=== PATIENT | female | born 1930 | race Caucasian/White ===

== ENCOUNTER 2018-03-27 09:10 | Inpatient (IN) | payer OTHER ==
--- NOTE | 2018-03-27 09:35 | PDOC ---
History of Present Illness - General Chief Complaint: Injury Stated Complaint: FALL Time Seen by Provider: 03/27/18 09:17 History Source: Senior Living Records - History of Present Illness Initial Comments: 03/27/18 10:02 * History obtained from EMS and paperwork from [facility]. Patient is an 87 year old female with a PMH of Asthma and Dementia who was BIBEMS after being found on the floor this morning at her [facility]. Patient is alert , but not oriented and asks why she is here -- which she identifies as [place] , but is unable to state she is at the hospital. Does not recall falling out of bed and states since she is at the hospital would like a lump in her L underarm evaluated. ROS is positive for R "groin pain" when she moves her R leg. States this pain has been going on for 2-3 weeks. NKDA Surgical: denies Social: denies Medications: ASA, Vitamin D, Ferrous Sulfate, Vitamin C, Docusate, Senna As per EMR patient has not been evaluated in our ED on prior occasion. Past History - Past Medical History Allergies/Adverse Reactions: Allergies Allergy/AdvReac Type Severity Reaction Status Date / Time No Known Allergies Allergy Verified 03/27/18 09:35 Review of Systems - Review of Systems Able to Perform ROS?: No (dementia - limited ROS) Constitutional: Yes: Fever Musculoskeletal: Yes: Other (R groin pain) *Physical Exam - Physical Exam General Appearance: Yes: Nourished, Thin HEENT: positive: EOMI, VALENTIN, Other (No mastoid ecchymosis, ) Neck: positive: Trachea midline, Supple Respiratory/Chest: positive: Lungs Clear, Normal Breath Sounds Cardiovascular: positive: S1, S2, Systolic Murmur Vascular Pulses: Femoral (R): 2+, Femoral (L): 2+, Dorsalis-Pedis (R): 2+, Doralis-Pedis (L): 2+ Gastrointestinal/Abdominal: positive: Normal Bowel Sounds, Soft Extremity: positive: Normal Capillary Refill, Normal Inspection, Other (B/L LE full ROM, No visible deformity) Integumentary: positive: Normal Color, Dry, Warm Neurologic: positive: Alert, Responsive, Disoriented ED Treatment Course - LABORATORY CBC & Chemistry Diagram: 03/27/18 10:55 03/27/18 10:55 Medical Decision Making - Medical Decision Making 03/27/18 10:02 87 year old female with a PMH of dementia found on the floor at her assisted living facility. PE significant for R groin pain when ranging RLE, NVI, pelvis stable, no deformity. DDX: CVA/TIA, r/o ACS, Pelvic fracture. Will obtain CT head, R hip/pelvis, Troponin, ECG. 03/27/18 11:08 Attending discussed case w/nursing @ [facility] - patient lives in dementia unit, ambulatory, completes ADL's with minimal assistance. 03/27/18 13:[address], XR pending 03/27/18 14:16 XR shows R femoral neck fracture Case d/w orthopedic surgery Patient's PMD, Dr. Terrazas paged for admission 03/27/18 15:[address] Terrazas. Patient counseled on POC. Amenable to admission. [facility] contacted and counseled on POC. 03/27/18 17:27 Dr. Zhou @ bedside. Notes patient will go to OR in 72 hours pending Eliquis clearance. *DC/Admit/Observation/Transfer Diagnosis at time of Disposition: Femoral neck fracture - Discharge Dispostion Disposition: HOME Condition at time of disposition: Fair Decision to Admit order: Yes - Referrals - Patient Instructions - Post Discharge Activity
[2018-03-27] MEDS ORDERED: ASPIRIN 81 MG CHEWABLE TABLETS ONE (09:38)
--- NOTE | 2018-03-27 09:54 | PDOC ---
Attending Attestation - Resident Resident Name: Leah Leonardo - ED Attending Attestation I have performed the following: I have examined & evaluated the patient, The case was reviewed & discussed with the resident, I agree w/resident's findings & plan, Exceptions are as noted - HPI HPI: 03/27/18 11:33 87y F hx of dementia presents from [facility] dementia unit sp unwitnessed fall. Per staff, pt was unable to stand onher own and was localizing pain to her R groin after trying to stand. History limited from pt due to her dementia, but denie sany other focal complaints including fever/chills, cp, abd pain, headache. on exam pt in no distress AOx1 card: rrr, no mrg abd soft nontender pulm cta b/l mild pain to pelvis with passive ROM of R hip, otherwise normal ROM of b/l hip, knees, ankles, and upper extremities a&p unwitnessed fall, possible syncope - will obtain blood work to r/o anemia, metabolic dernagement, occult infection 03/27/18 14:23 pts xray noted for impacted femoral fracture ortho consulted will admit for further mangaement - Physicial Exam PE: 03/28/18 11:20 see above - Medical Decision Making 03/27/18 10:59 discussed with in home caregiver Oracio Chairez ([phone]) Pt with history of dementia and breast ca, had an unwitnessed fall this morning - found down during morning rounds. had attempted to stand on her own but was unable to remain standing. no prior history of falls. normally walks unassisted. PMD:Dr. Terrazas Legal guardian - Yury Hobbs (Nephew) - [phone] Heart Score/ECG Review - ECG Impressions Comment:: 03/27/18 11:36 Twelve-lead EKG was performed and reviewed by me. There is normal sinus rhythm with a rate of rate of 47 nonspecific TWI No prior ekgs for comparison Impression: sinus bradycardia
[2018-03-27 11:00] LABS: BASO % 0.4 % (0-2.0); EOS % 0.3 % (0-4.5); HEMATOCRIT 39.5 % (32.4-45.2); HEMOGLOBIN 13.5 GM/dL (10.7-15.3); LYMPH % 12.8 % (8-40); MCH 31.7 pg (25.7-33.7); MCHC 34.2 g/dl (32.0-36.0); MEAN CELL VOLUME 92.8 fl (80-96); MEAN PLT VOLUME 9.1 fl (7.5-11.1); MONO % 2.5 % (3.8-10.2); PLATELET COUNT 113 K/MM3 (134-434); RBC 4.25 M/mm3 (3.60-5.2); RDW 13.4 % (11.6-15.6)
[2018-03-27 11:48] LABS: ALBUMIN 3.8 g/dl (3.4-5.0); ALK PHOS 72 U/L (45-117); ANION GAP 7 MMOL/L (8-16); BILIRUBIN,TOTAL 0.9 mg/dL (0.2-1); BLOOD UREA NITROGEN 17 mg/dL (7-18); CALCIUM 9.6 mg/dL (8.5-10.1); CHLORIDE 107 mmol/L (98-107); CO2 28 mmol/L (21-32); CREATININE 0.7 mg/dL (0.55-1.3); GLUCOSE,RANDOM 89 mg/dL (74-106); MAGNESIUM 1.9 mg/dL (1.8-2.4); POTASSIUM 4.3 mmol/L (3.5-5.1); SGOT/AST 31 U/L (15-37); SGPT/ALT 29 U/L (13-61); SODIUM 143 mmol/L (136-145); TOT PROT 6.2 g/dl (6.4-8.2)
[2018-03-27] MEDS ORDERED: ALBUTEROL SO4 8 GM HFA INHALER IH ONE (11:53)
[2018-03-27] MEDS ORDERED: OLANZapine 5 MG TABLET PO ONE (12:11)
[2018-03-27] MEDS ORDERED: MORPHINE SULFATE 2 MG/ML VIAL IVPUSH PRN (17:15)
[2018-03-27 17:26] LABS: INR 1.07 (0.83-1.09); PROTHROMBIN TIME (PATIENT) 12.1 SEC (9.7-13.0)
--- NOTE | 2018-03-27 17:27 | PN ---
Progress Note (short form) - Note Progress Note: 87 yo female seen and examined in the ER. She fell today at her assisted living facility. Cannot walk or bear weight, c/o pain in the right groin. PE RLE is grossly NVI No deformity, not mal rotated No shortening deformity + pain in groin with log rolling and axial load Limited ROM right hip and knee bc of pain Xrays Show a non displaced right femoral neck fracture Imp As above Rec Admission Medical (and cardiac?) optimization Hold all anticoagulants including ASA and Eliquis Because of the Eliquis the surgery is delayed for 3 days Patient will need surgery, right hip cannulated screws ORIF
[2018-03-27 17:29] LABS: ACTIVATED PTT 25.1 SECONDS (25.2-36.5)
--- NOTE | 2018-03-27 18:08 | EKG ---
Test Reason : Blood Pressure : / mmHG Vent. Rate : 047 BPM Atrial Rate : 047 BPM P-R Int : 130 ms QRS Dur : 086 ms QT Int : 416 ms P-R-T Axes : 080 055 090 degrees QTc Int : 368 ms SINUS BRADYCARDIA WITH MARKED SINUS ARRHYTHMIA POSSIBLE LEFT ATRIAL ENLARGEMENT NONSPECIFIC ST AND T WAVE ABNORMALITY ABNORMAL ECG NO PREVIOUS ECGS AVAILABLE Confirmed by VASQUEZ RAZO MD ([id number]) on 03/27/2018 6:08:15 PM Referred By: Confirmed By:VASQUEZ RAZO MD
[2018-03-27 18:50] LABS: URINE APPEARANCE CLEAR; URINE BILIRUBIN NEGATIVE (<2.0 mg/dL); URINE COLOR YELLOW; URINE GLUCOSE (UA) NEGATIVE (NEGATIVE); URINE KETONE NEGATIVE (NEGATIVE); URINE LEUK ESTERASE NEGATIVE (NEGATIVE); URINE NITRITE NEGATIVE (NEGATIVE); URINE PROTEIN NEGATIVE (NEGATIVE); URINE UROBILINOGEN NEGATIVE mg/dL (0.2-1.0)
--- NOTE | 2018-03-27 22:56 | HP ---
Admitting History and Physical - Admission History of Present Illness: Patient is an 87 year old female with a PMH of Asthma and Dementia who was BIBEMS after being found on the floor this morning at her [facility]. Patient is alert , but not oriented and asks why she is here -- which she identifies as [place] , but is unable to state she is at the hospital. Does not recall falling out of bed and states since she is at the hospital would like a lump in her L underarm evaluated. ROS is positive for R "groin pain" when she moves her R leg. States this pain has been going on for 2-3 weeks. History is obtained from [facility] transfer paperwork, and discussion with nurse over the phone.-- Fall was unwitnessed. 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 - Smoking History Smoking history: Never smoked Have you smoked in the past 12 months: No - Alcohol/Substance Use Hx Alcohol Use: No - Social History Usual Living Arrangement: Yes: Assisted Living ADL: Support Services History of Recent Travel: No Home Medications - Allergies Allergies/Adverse Reactions: Allergies Allergy/AdvReac Type Severity Reaction Status Date / Time No Known Allergies Allergy Verified 03/27/18 09:35 Review of Systems Unable to obtain ROS, reason: dementia Physical Examination Vital Signs: Vital Signs Temperature 97.8 F 03/27/18 21:55 Pulse Rate 80 03/27/18 21:55 Respiratory Rate 20 03/27/18 21:55 Blood Pressure 120/76 03/27/18 21:55 O2 Sat by Pulse Oximetry (%) 94 L 03/27/18 14:00 Constitutional: Yes: Calm, Thin, Other (confused) Eyes: Yes: WNL, Conjunctiva Clear HENT: Yes: Atraumatic, Normocephalic Neck: Yes: Supple, Trachea Midline Cardiovascular: Yes: Regular Rate and Rhythm Respiratory: Yes: Regular Gastrointestinal: Yes: Normal Bowel Sounds, Soft. No: Distention, Tenderness Renal/: Yes: WNL Breast(s): Yes: WNL Musculoskeletal: Yes: Other (right groin pain / pain with log rolling /) Extremities: Yes: Deformity, Shortened (right lower extremity) Edema: No Peripheral Pulses WNL: Yes Integumentary: Yes: WNL Neurological: Yes: Pre-Existing Deficit Labs: CBC, BMP 03/27/18 10:55 03/27/18 10:55 Problem List - Problems (1) Fracture of femoral neck, right Code(s): S72.001A - FRACTURE OF UNSP PART OF NECK OF RIGHT FEMUR, INIT (2) Dementia Code(s): F03.90 - UNSPECIFIED DEMENTIA WITHOUT BEHAVIORAL DISTURBANCE (3) Femoral neck fracture Code(s): S72.009A - FRACTURE OF UNSP PART OF NECK OF UNSP FEMUR, INIT
--- NOTE | 2018-03-28 09:21 | PN ---
Progress Note (short form) - Note Progress Note: Ortho Pt seen and examined with right femoral neck fx- nondisplaced Selected Entries 03/28/18 06:00 Temperature 97.4 F L Pulse Rate 84 Respiratory 20 Rate Blood Pressure 150/68 Laboratory Tests 03/27/18 10:55 WBC 11.0 H Hgb 13.5 Hct 39.5 Plt Count 113 L RLE- + ttp , limited rom secondary to pain nvi a/p OR for cannulated screws once medically optimized Tentatively for /Tuesday Surgical clearance Hold AC d/w Dr. Zhou
--- NOTE | 2018-03-28 09:32 | CON.CARD ---
Consult Consult Specialty:: Cardiology Referred by:: Mk Reason for Consultation:: Preop - History of Present Illness Chief Complaint: hip fracture History of Present Illness: 87F h/o asthma, dementia p/w fall, found on the floor. Cannot provide history due to dementia, lives at assisted living. Does not remember the fall. Xray shows fracture of hip, ortho evaluated with plan for surgery. EKG shows sinus bradycardia with sinus arrhythmia, nonspecific ST abnormality. She denies any complaints this morning. - Past Medical History PROCESS OWNER: Yes: Dementia - Alcohol/Substance Use Hx Alcohol Use: No - Smoking History Smoking history: Never smoked Have you smoked in the past 12 months: No - Social History ADL: Support Services History of Recent Travel: No Home Medications - Allergies Allergies/Adverse Reactions: Allergies Allergy/AdvReac Type Severity Reaction Status Date / Time No Known Allergies Allergy Verified 03/27/18 09:35 - Home Medications Home Medications: Ambulatory Orders ASA - PO DAILY 03/28/18 Docusate Sodium 2 cap PO HS 03/28/18 Ferrous Sulfate 1 tab PO DAILY 03/28/18 Senna 1 tab PO HS 03/28/18 Ventolin Hfa Inhaler -200 2 puff QID 03/28/18 Vitamin C 1 tab PO DAILY 03/28/18 Vitamin D2 units PO MONTHLY 03/28/18 Vitamin D3 1 tablet PO DAILY 03/28/18 Family Disease History - Family Disease History Family History: Unable to Obtain Review of Systems Unable to obtain ROS, reason: dementia Vital Signs: Vital Signs Temperature 97.4 F L 03/28/18 06:00 Pulse Rate 84 03/28/18 06:00 Respiratory Rate 20 03/28/18 06:00 Blood Pressure 150/68 03/28/18 06:00 O2 Sat by Pulse Oximetry (%) 94 L 03/27/18 14:00 Constitutional: Yes: No Distress, Calm Eyes: Yes: Conjunctiva Clear, EOM Intact HENT: Yes: Atraumatic, Normocephalic Neck: Yes: Supple, Trachea Midline Respiratory: Yes: Regular, CTA Bilaterally (poor effort, auscultated anteriorly) Gastrointestinal: Yes: Normal Bowel Sounds, Soft Cardiovascular: Yes: Regular Rate and Rhythm JVD: No Carotid Bruit: No Heart Sounds: Yes: S1, S2 Murmur: Yes: Systolic Murmur, Grade 3 (RUSB, crescendo-decrescendjo) Musculoskeletal: Yes: Joint Swelling Extremities: Yes: External Rotation Edema: No Peripheral Pulses WNL: Yes Peripheral Pulses: 2+ Left Doralis Pedis, 2+ Right Dorsalis Pedis Integumentary: Yes: WNL Neurological: Yes: Alert, Oriented Psychiatric: Yes: Alert, Oriented - Other Data Labs, Other Data: CBC, BMP 03/27/18 10:55 03/27/18 10:55 INR, PTT INR 1.07 (0.83-1.09) 03/27/18 16:50 Troponin, BNP 03/27/18 10:55 Troponin I 0.02 Troponin, BNP 03/27/18 10:55 Troponin I 0.02 Assessment/Plan EKG: sinus bradycardia with sinus arrhythmia, nonspecific ST abnormality 87F h/o asthma, dementia p/w hip fracture preoperative evaluation - pt unable to give history - murmur on exam, consistent with , echo pending for evaluation - preop clearance pending echo - otherwise patient appears stable from cardiac perspective asthma - denies dyspnea - manage per primary dementia - manage per primary
--- NOTE | 2018-03-28 10:45 | PN ---
Progress Note (short form) - Note Progress Note: patient seen andexamined unable to provide any hx denies pain / but can illicit pain on log rolling or examination of right hip Vital Signs Period Temp Pulse Resp BP Sys/Hood Pulse Ox Last 24 Hr 97.4 F-97.8 F 60-84 18-20 120-150/52-76 94 neck supple heart S1/S2 SM 3/6 left breast with multiple hard irregular masses ( HCP aware) lung clear bilat abd soft non tender ext no edema / +2 pulses equally no calf tenderness CBC, BMP 03/27/18 10:55 03/27/18 10:55 Active Medications Ascorbic Acid (Vitamin C -) 500 mg PO DAILY [facility] Cholecalciferol (Vitamin D3 -) 1,000 unit PO DAILY [facility] Docusate Sodium (Colace -) 200 mg PO HS [facility] Ferrous Sulfate (Feosol -) 325 mg PO DAILY [facility] Morphine Sulfate (Morphine Sulfate) 2 mg IVPUSH Q4H PRN PRN Reason: PAIN LEVEL 6-10 Senna (Senna -) 1 tab PO HS [facility] assmt Dementia Acute right femoral neck Fx Loud HM - ? -- echo ordered Breast Mass - no intervention per HCP Asthma Ortho eval off ASA Cardio evaluation for clearance pain management nebulizer tx Problem List - Problems (1) Fracture of femoral neck, right Code(s): S72.001A - FRACTURE OF UNSP PART OF NECK OF RIGHT FEMUR, INIT (2) Dementia Code(s): F03.90 - UNSPECIFIED DEMENTIA WITHOUT BEHAVIORAL DISTURBANCE (3) Femoral neck fracture Code(s): S72.009A - FRACTURE OF UNSP PART OF NECK OF UNSP FEMUR, INIT
[2018-03-28] MEDS: ALBUTEROL SO4 2.5/IPRATROPIUM 0.5 INH SOL 3 ML VIAL.NEB. NEB SCH ×3 (11:55→19:50)
[2018-03-28] MEDS: ASCORBIC ACID 500 MG TABLET (FP) PO SCH (14:18)
[2018-03-28] MEDS: FERROUS SO4 325 MG TABLET (FP) PO SCH (14:18)
[2018-03-28] MEDS: CHOLECALCIFEROL (VITAMIN D3) 1,000 UNIT TABLET (FP) PO SCH (14:19)
[2018-03-28] MEDS ORDERED: SENNOSIDES 8.6MG TABLET (FP) PO SCH (22:00)
[2018-03-28] MEDS ORDERED: DOCUSATE SODIUM 100 MG CAPSULE (FP) PO SCH (22:00)
[2018-03-29] MEDS: ALBUTEROL SO4 2.5/IPRATROPIUM 0.5 INH SOL 3 ML VIAL.NEB. NEB SCH ×4 (07:43→21:05)
[2018-03-29 07:56] LABS: BASO % 0.8 % (0-2.0); EOS % 3.9 % (0-4.5); HEMATOCRIT 31.2 % (32.4-45.2); HEMOGLOBIN 10.5 GM/dL (10.7-15.3); LYMPH % 14.3 % (8-40); MCH 31.1 pg (25.7-33.7); MCHC 33.7 g/dl (32.0-36.0); MEAN CELL VOLUME 92.4 fl (80-96); MEAN PLT VOLUME 9.2 fl (7.5-11.1); MONO % 6.9 % (3.8-10.2); NEUT % 74.1 % (42.8-82.8); PLATELET COUNT 93 K/MM3 (134-434); RBC 3.38 M/mm3 (3.60-5.2); RDW 13.7 % (11.6-15.6); WHITE BLOOD COUNT 9.4 K/mm3 (4.0-10.0)
[2018-03-29 08:28] LABS: ANION GAP 9 MMOL/L (8-16); BLOOD UREA NITROGEN 21 mg/dL (7-18); CHLORIDE 108 mmol/L (98-107); CO2 27 mmol/L (21-32); CREATININE 0.7 mg/dL (0.55-1.3); GLUCOSE,RANDOM 103 mg/dL (74-106); POTASSIUM 4.2 mmol/L (3.5-5.1); SODIUM 143 mmol/L (136-145)
[2018-03-29] MEDS: FERROUS SO4 325 MG TABLET (FP) PO SCH (10:57)
[2018-03-29] MEDS: CHOLECALCIFEROL (VITAMIN D3) 1,000 UNIT TABLET (FP) PO SCH (10:57)
[2018-03-29] MEDS: ASCORBIC ACID 500 MG TABLET (FP) PO SCH (10:57)
--- NOTE | 2018-03-29 12:24 | PN ---
Progress Note (short form) - Note Progress Note: s: no complaints today. no cp, palps, dizzy, sob Current Medications Albuterol/Ipratropium (Duoneb -) 1 amp NEB RQID [facility] Last Admin: 03/29/18 11:58 Dose: Not Given Ascorbic Acid (Vitamin C -) 500 mg PO DAILY [facility] Last Admin: 03/29/18 10:57 Dose: Not Given Cholecalciferol (Vitamin D3 -) 1,000 unit PO DAILY [facility] Last Admin: 03/29/18 10:57 Dose: Not Given Docusate Sodium (Colace -) 200 mg PO [facility] Last Admin: 03/28/18 23:03 Dose: Not Given Ferrous Sulfate (Feosol -) 325 mg PO DAILY [facility] Last Admin: 03/29/18 10:57 Dose: Not Given Morphine Sulfate (Morphine Sulfate) 2 mg IVPUSH Q4H PRN PRN Reason: PAIN LEVEL 6-10 Last Admin: 03/28/18 22:58 Dose: 2 mg Senna (Senna -) 1 tab PO [facility] Last Admin: 03/28/18 23:03 Dose: Not Given Vital Signs: Vital Signs Period Temp Pulse Resp BP Sys/Hood Pulse Ox Last 24 Hr 97.8 F-98.8 F 75-88 18-20 109-152/60-77 Constitutional: Yes: No Distress, Calm Eyes: Yes: Conjunctiva Clear, EOM Intact HENT: Yes: Atraumatic, Normocephalic Neck: Yes: Supple, Trachea Midline Respiratory: Yes: Regular, CTA Bilaterally (poor effort, auscultated anteriorly) Gastrointestinal: Yes: Normal Bowel Sounds, Soft Cardiovascular: Yes: Regular Rate and Rhythm JVD: No Carotid Bruit: No Heart Sounds: Yes: S1, S2 Murmur: Yes: Systolic Murmur, Grade 3 (RUSB, crescendo-decrescendo) Musculoskeletal: Yes: Joint Swelling Extremities: Yes: External Rotation Edema: No Peripheral Pulses WNL: Yes Peripheral Pulses: 2+ Left Doralis Pedis, 2+ Right Dorsalis Pedis Integumentary: Yes: WNL Neurological: Yes: Alert, Oriented Psychiatric: Yes: Alert, Oriented Assessment/Plan EKG: sinus bradycardia with sinus arrhythmia, nonspecific ST abnormality 87F h/o asthma, dementia p/w hip fracture preoperative evaluation - clinically appears euvolemic. no history of chest pain, dyspnea, edema - echo preliminary shows severe , full read is pending - patient is asymptomatic with no signs of HF - may proceed with urgent hip surgery as planned, no further cardiac testing prior to surgery. Cautious use of IV fluids and close monitoring of volume status given aortic stenosis aortic stenosis - likely severe, full echo report pending - appears euvolemic, asymptomatic asthma - denies dyspnea - manage per primary dementia - manage per primary
--- NOTE | 2018-03-29 13:03 | ECHO ---
Name: KYLE UPTON Exam:Adult Echocardiogram Study Date: 03/29/2018 11:34 AM Age: 87 yrs Reason For Study: mmurmur,pre-op Height: 65 in Weight: 112 lb BSA: 1.5 m2 MMode/2D Measurements & Calculations IVSd: 0.90 cm Ao root diam: 2.8 cm LVIDd: 3.1 cm LA dimension: 2.3 cm LVIDs: 1.8 cm ACS: 0.49 cm LVPWd: 1.1 cm IVSs: 1.3 cm LVPWs: 1.4 cm EDV(Teich): 38.4 ml ESV(Teich): 9.6 ml Doppler Measurements & Calculations MV E max ernst: 74.8 cm/sec Ao V2 max: 591.3 cm/sec MV A max ernst: 108.3 cm/sec Ao max P.0 mmHg MV E/A: 0.69 Ao V2 mean: 434.1 cm/sec Ao mean P.8 mmHg Ao V2 VTI: 112.2 cm TR max ernst: 327.5 cm/sec Med Peak E' Ernst: 3.5 cm/sec TR max P.1 mmHg Med E/e': 21.3 Lat Peak E' Ernst: 6.3 cm/sec Lat E/e': 12.0 Procedure A two-dimensional transthoracic echocardiogram with color flow and Doppler was performed. Left Ventricle There is moderate concentric left ventricular hypertrophy. The left ventricular ejection fraction is normal. E/A reversal consistent with but not diagnostic of poor LV compliance. The left ventricular wall travis on is normal. Right Ventricle The right ventricle is normal in size and function. Atria Normal left and right atrial size and function. Mitral Valve There is mild mitral valve thickening. There is no mitral valve stenosis. There is trace to mild mitr al regurgitation. Tricuspid Valve There is moderate tricuspid valve thickening. There is no tricuspid stenosis. There is moderate tricu spid regurgitation. Right ventricular systolic pressure is elevated at 50-60mmHg. Aortic Valve There is severe aortic valve thickening. The aortic valve is not well visualized. There is severe aor tic sclerosis.;. Severe valvular aortic stenosis. -critical with the mean gradient 88 mmHg. ALESIA not calculated. No aortic regurgitation is present. Pulmonic Valve The pulmonic valve is not well visualized. There is no pulmonic valvular stenosis. There is no pulmon ic valvular regurgitation. Great Vessels The aortic root is normal size. Pericardium/Pleura There is no pericardial effusion. Interpretation Summary There is moderate concentric left ventricular hypertrophy. The left ventricular ejection fraction is normal. The aortic valve is not well visualized. There is moderate tricuspid regurgitation. Right ventricular systolic pressure is elevated at 50-60mmHg. E/A reversal consistent with but not diagnostic of poor LV compliance The left ventricular wall motion is normal. Severe valvular aortic stenosis. No aortic regurgitation is present. There is trace to mild mitral regurgitation. -critical with the mean gradient 88 mmHg. ALESIA not calculated. There is severe aortic valve thickening. There is severe aortic sclerosis.; MD Oliver Amaya 03/29/2018 01:03 PM
[2018-03-29] MEDS ORDERED: LIDOCAINE HCL/PF 2% SDV 5ML VIAL ONE (15:23)
[2018-03-29] MEDS ORDERED: SUCCINYLCHOLINE CHLORIDE 200 MG/10 ML VIAL ONE (15:25)
[2018-03-29] MEDS ORDERED: ONDANSETRON 4 MG/2 ML VIAL IVPUSH PRN ×2 (15:37→18:22)
[2018-03-29] MEDS ORDERED: LACTATED RINGERS SOLUTION 1,000 ML IV SCH (15:45)
[2018-03-29] MEDS ORDERED: DEXAMETHASONE SOD PHOSPHATE 4 MG/1 ML VIAL ONE (15:58)
[2018-03-29] MEDS ORDERED: SODIUM CHLORIDE 0.9% P/F 10 ML VIAL IJ ONE (15:58)
[2018-03-29] MEDS ORDERED: ceFAZolin SODIUM 1 GM VIAL ONE (15:58)
[2018-03-29] MEDS ORDERED: MIDAZOLAM HCL 2 MG/2 ML SINGLE DOSE VIAL ONE (16:03)
[2018-03-29] MEDS ORDERED: ceFAZolin SODIUM 1 GM VIAL IVPB ONE (16:30)
[2018-03-29] MEDS ORDERED: ePHEDrine SULFATE 50 MG/1 ML AMPULE ONE (16:49)
--- NOTE | 2018-03-29 17:38 | OP ---
Operative Note - Note: Operative Date: 03/29/18 Pre-Operative Diagnosis: right femoral neck fracture Operation: right hip cannulated screws Implants: Denys Asnin-III cannulated hip screws x 3, 80mm, 85mm, and 85mm in length Surgeon: Bill Zhou Anesthesiologist/CRIME SCENE EVIDENCE TECHNICIAN: Ruy Mendez Anesthesia: General, Spinal Estimated Blood Loss (mls): 100 Drains, Volume Out (mls): 0 Blood Volume Replaced (mls): 0 Fluid Volume Replaced (mls): 500 Operative Report Dictated: Yes
[2018-03-29] MEDS: LACTATED RINGERS SOLUTION 1,000 ML IV SCH (19:30)
--- NOTE | 2018-03-29 21:54 | PN ---
Progress Note (short form) - Note Progress Note: patient seen and examined dementia denies pain / but can illicit pain on log rolling or examination of right hip Vital Signs Period Temp Pulse Resp BP Sys/Hood Pulse Ox Last 24 Hr 97.7 F-98.3 F 75-102 18-23 90-127/41-70 91-100 neck supple heart S1/S2 SM 3/6 left breast with multiple hard irregular masses ( HCP aware) lung clear bilat abd soft non tender ext no edema / +2 pulses equally no calf tenderness CBC, BMP 03/29/18 07:28 03/29/18 07:28 INR, PTT INR 1.07 (0.83-1.09) 03/27/18 16:50 CBC, BMP 03/27/18 10:55 03/27/18 10:55 Active Medications Albuterol/Ipratropium (Duoneb -) 1 amp NEB RQID [facility] Last Admin: 03/29/18 21:05 Dose: 1 amp Ascorbic Acid (Vitamin C -) 500 mg PO DAILY [facility] Cholecalciferol (Vitamin D3 -) 1,000 unit PO DAILY [facility] Docusate Sodium (Colace -) 200 mg PO HS [facility] Fentanyl (Sublimaze Injection -) 25 mcg IVPUSH [id number] PRN PRN Reason: PAIN-PACU ORDER X 4 DOSES ONLY Ferrous Sulfate (Feosol -) 325 mg PO DAILY [facility] Lactated Ringer's (Lactated Ringers Solution) 1,000 mls @ 75 mls/hr IV ASDIR [facility] Last Admin: 03/29/18 19:30 Dose: 0 mls Morphine Sulfate (Morphine Sulfate) 2 mg IVPUSH Q4H PRN PRN Reason: PAIN LEVEL 6-10 Ondansetron HCl (Zofran Injection) 4 mg IVPUSH Q6H PRN PRN Reason: NAUSEA AND/OR VOMITING Senna (Senna -) 1 tab PO HS [facility] assmt Dementia Acute right femoral neck Fx Loud HM - ? -- echo ordered Breast Mass - no intervention per HCP Asthma plan discssed with ortho -- possible OR today off ASA Cardio evaluation for clearance -- pending echo -- ?? today pain management nebulizer tx Problem List - Problems (1) Fracture of femoral neck, right Code(s): S72.001A - FRACTURE OF UNSP PART OF NECK OF RIGHT FEMUR, INIT (2) Dementia Code(s): F03.90 - UNSPECIFIED DEMENTIA WITHOUT BEHAVIORAL DISTURBANCE (3) Femoral neck fracture Code(s): S72.009A - FRACTURE OF UNSP PART OF NECK OF UNSP FEMUR, INIT
[2018-03-29] MEDS: DOCUSATE SODIUM 100 MG CAPSULE (FP) PO SCH (22:39)
[2018-03-29] MEDS: SENNOSIDES 8.6MG TABLET (FP) PO SCH (22:39)
--- NOTE | 2018-03-30 06:52 | OP ---
DATE OF OPERATION: 03/29/2018 PREOPERATIVE DIAGNOSIS: Right femoral neck fracture. POSTOPERATIVE DIAGNOSIS: Right femoral neck fracture. PROCEDURE: Right hip cannulated screws/open reduction internal fixation. SURGEON: Ulysses Jurado MD ASSISTANTS: None. JAVA SECURITY ARCHITECT: Ruy Mendez CRNA ANESTHESIA: Spinal with LMA anesthesia. DRAINS: None. COMPLICATIONS: None. SPECIMEN: None. BLOOD LOSS: 100 mL. BLOOD GIVEN: None. FLUID REPLACEMENT: PlasmaLyte, 500 mL. INDICATIONS: This patient is an 87-year-old female with a preoperative diagnosis of a right femoral neck fracture. After understanding the potential risks, complications, alternatives, benefits to surgery versus nonsurgical treatment, she and her family including her nephew, her health care proxy, elected to undergo this procedure . There are certain risks including AVN of the femoral head and need for additional surgery. DESCRIPTION OF PROCEDURE: The patient was brought to the operating room, peripheral IV placed, IV sedation given, spinal anesthesia was induced, general anesthesia was induced. The patient was placed onto the fracture table. Ample padding noted throughout including the perineal posts. X-rays were taken of the AP and lateral planes documenting excellent position of the femoral neck and head. The right lower extremity was prepped and draped in sterile fashion. Lateral incision was made with a No. 10 scalpel blade. Subcutaneous hemostasis was achieved with the Bovie cautery. Dissection was done down through the lateral fascia using the triangular guide and putting 3 partially threaded guidewires all in the center-center portion of the femoral neck slightly posterior, slightly inferior. X-rays were taken in multiple planes including the AP and lateral documenting excellent position of these 3 screws. Then, the lateral cortex was overdrilled and 3 Asnis III Denys cannulated 6.5-mm screws were placed over the guidewires of 85, 85, and 80 mm in length. X-rays were taken throughout. Overall, it came together quite nicely. I was quite happy with the fixation. Area was irrigated and washed out. Closure was done with 0 running stitch in the deep fascia, 2-0 Vicryl was used to close the deep dermal layer, and final skin reapproximation was done with ronnie. The area was then washed and dried and covered with Aquacel, and she was taken out of the fracture table position. Total surgical time was about 35 minutes. There were no complications during the case. The patient tolerated the procedure quite well, was extubated, and brought to the regular recovery room in stable condition. Total blood loss was 100 mL. There were no complications. ULYSSES JURADO M.D. [id number]
[2018-03-30] MEDS: ALBUTEROL SO4 2.5/IPRATROPIUM 0.5 INH SOL 3 ML VIAL.NEB. NEB SCH ×4 (07:33→19:50)
[2018-03-30 07:58] LABS: BASO % 0.2 % (0-2.0); EOS % 0.1 % (0-4.5); HEMATOCRIT 25.6 % (32.4-45.2); HEMOGLOBIN 8.7 GM/dL (10.7-15.3); LYMPH % 11.2 % (8-40); MCH 31.3 pg (25.7-33.7); MEAN CELL VOLUME 92.1 fl (80-96); MEAN PLT VOLUME 9.8 fl (7.5-11.1); MONO % 5.7 % (3.8-10.2); NEUT % 82.8 % (42.8-82.8); PLATELET COUNT 96 K/MM3 (134-434); RBC 2.78 M/mm3 (3.60-5.2); RDW 13.3 % (11.6-15.6); WHITE BLOOD COUNT 9.6 K/mm3 (4.0-10.0)
[2018-03-30 08:17] LABS: ANION GAP 14 MMOL/L (8-16); BLOOD UREA NITROGEN 40 mg/dL (7-18); CALCIUM 8.7 mg/dL (8.5-10.1); CHLORIDE 107 mmol/L (98-107); CO2 24 mmol/L (21-32); CREATININE 1.5 mg/dL (0.55-1.3); GLUCOSE,RANDOM 147 mg/dL (74-106); POTASSIUM 4.4 mmol/L (3.5-5.1); SODIUM 144 mmol/L (136-145)
--- NOTE | 2018-03-30 09:25 | PN ---
Progress Note (short form) - Note Progress Note: Pt seen and examined on POD #1 s/p right hip screws. Comfortable, no real c/o pain, awake and alert and answering questions appropriately AVSS although BP trending lower and HR trending higher H/H dropped to 8.7/25.6 B/L LE are NVI with good ROM throughout Imp: Doing well on POD #1 Rec: P.T., light PWB RLE DC planning, SNF I recommend transfusing 1 unit PRBC
[2018-03-30] MEDS: LACTATED RINGERS SOLUTION 1,000 ML IV SCH (10:09)
[2018-03-30] MEDS: ASCORBIC ACID 500 MG TABLET (FP) PO SCH (10:11)
[2018-03-30] MEDS: FERROUS SO4 325 MG TABLET (FP) PO SCH (10:11)
[2018-03-30] MEDS: CHOLECALCIFEROL (VITAMIN D3) 1,000 UNIT TABLET (FP) PO SCH (10:11)
--- NOTE | 2018-03-30 11:01 | PN ---
Progress Note (short form) - Note Progress Note: patient seen and examined unable to provide any hx POD #1 right hip screws required sinclair for urinary obstruction Vital Signs Period Temp Pulse Resp BP Sys/Hood Pulse Ox Last 24 Hr 97.4 F-97.8 F 60-84 18-20 120-150/52-76 94 neck supple heart S1/S2 SM 3/6 left breast with multiple hard irregular masses ( HCP aware) lung clear bilat abd soft non tender ext no edema / +2 pulses equally no calf tenderness / good cap refill CBC, BMP 03/30/18 06:18 03/30/18 06:18 CBC, BMP 03/27/18 10:55 03/27/18 10:55 Active Medications Albuterol/Ipratropium (Duoneb -) 1 amp NEB RQID [facility] Last Admin: 03/30/18 07:33 Dose: 1 amp Ascorbic Acid (Vitamin C -) 500 mg PO DAILY [facility] Last Admin: 03/30/18 10:11 Dose: 500 mg Cholecalciferol (Vitamin D3 -) 1,000 unit PO DAILY [facility] Last Admin: 03/30/18 10:11 Dose: 1,000 unit Docusate Sodium (Colace -) 200 mg PO [facility] Last Admin: 03/29/18 22:39 Dose: 200 mg Fentanyl (Sublimaze Injection -) 25 mcg IVPUSH [id number] PRN PRN Reason: PAIN-PACU ORDER X 4 DOSES ONLY Ferrous Sulfate (Feosol -) 325 mg PO DAILY [facility] Last Admin: 03/30/18 10:11 Dose: 325 mg Lactated Ringer's (Lactated Ringers Solution) 1,000 mls @ 75 mls/hr IV ASDIR [facility] Last Admin: 03/30/18 10:09 Dose: 75 mls/hr Morphine Sulfate (Morphine Sulfate) 2 mg IVPUSH Q4H PRN PRN Reason: PAIN LEVEL 6-10 Ondansetron HCl (Zofran Injection) 4 mg IVPUSH Q6H PRN PRN Reason: NAUSEA AND/OR VOMITING Senna (Senna -) 1 tab PO HS [facility] Last Admin: 03/29/18 22:39 Dose: 1 tab assmt POD #1 right hip scews urinary obstruction Dementia Acute right femoral neck Fx Breast Mass - no intervention per HCP Asthma Plan transfuse 1 pRBC off ASA fluid management pain management nebulizer tx activity per Ortho Problem List - Problems (1) Fracture of femoral neck, right Code(s): S72.001A - FRACTURE OF UNSP PART OF NECK OF RIGHT FEMUR, INIT (2) Dementia Code(s): F03.90 - UNSPECIFIED DEMENTIA WITHOUT BEHAVIORAL DISTURBANCE (3) Femoral neck fracture Code(s): S72.009A - FRACTURE OF UNSP PART OF NECK OF UNSP FEMUR, INIT
--- NOTE | 2018-03-30 14:44 | PN ---
Progress Note (short form) - Note Progress Note: s: no complaints today Current Medications Albuterol/Ipratropium (Duoneb -) 1 amp NEB RQID [facility] Last Admin: 03/30/18 11:49 Dose: Not Given Ascorbic Acid (Vitamin C -) 500 mg PO DAILY [facility] Last Admin: 03/30/18 10:11 Dose: 500 mg Cholecalciferol (Vitamin D3 -) 1,000 unit PO DAILY [facility] Last Admin: 03/30/18 10:11 Dose: 1,000 unit Docusate Sodium (Colace -) 200 mg PO [facility] Last Admin: 03/29/18 22:39 Dose: 200 mg Fentanyl (Sublimaze Injection -) 25 mcg IVPUSH [id number] PRN PRN Reason: PAIN-PACU ORDER X 4 DOSES ONLY Ferrous Sulfate (Feosol -) 325 mg PO DAILY [facility] Last Admin: 03/30/18 10:11 Dose: 325 mg Lactated Ringer's (Lactated Ringers Solution) 1,000 mls @ 75 mls/hr IV ASDIR [facility] Last Admin: 03/30/18 10:09 Dose: 75 mls/hr Morphine Sulfate (Morphine Sulfate) 2 mg IVPUSH Q4H PRN PRN Reason: PAIN LEVEL 6-10 Ondansetron HCl (Zofran Injection) 4 mg IVPUSH Q6H PRN PRN Reason: NAUSEA AND/OR VOMITING Senna (Senna -) 1 tab PO [facility] Last Admin: 03/29/18 22:39 Dose: 1 tab Vital Signs: Vital Signs Period Temp Pulse Resp BP Sys/Hood Pulse Ox Last 24 Hr 97.5 F-98.4 F 80-102 18-23 90-127/41-68 96-100 Constitutional: Yes: No Distress, Calm Eyes: Yes: Conjunctiva Clear, EOM Intact HENT: Yes: Atraumatic, Normocephalic Neck: Yes: Supple, Trachea Midline Respiratory: Yes: Regular, CTA Bilaterally (poor effort, auscultated anteriorly) Gastrointestinal: Yes: Normal Bowel Sounds, Soft Cardiovascular: Yes: Regular Rate and Rhythm JVD: No Carotid Bruit: No Heart Sounds: Yes: S1, S2 Murmur: Yes: Systolic Murmur, Grade 3 (RUSB, crescendo-decrescendo) Musculoskeletal: Yes: Joint Swelling Extremities: Yes: External Rotation Edema: No Peripheral Pulses WNL: Yes Peripheral Pulses: 2+ Left Doralis Pedis, 2+ Right Dorsalis Pedis Integumentary: Yes: WNL Neurological: Yes: Alert, Oriented Psychiatric: Yes: Alert, Oriented Assessment/Plan EKG: sinus bradycardia with sinus arrhythmia, nonspecific ST abnormality echo 03/2018 mod conc LVH, nl EF, AV severely calcified, RVSP 50-60 mmHg, severe , mean gradient 88 mmHg, PG 140 mmHg, tr to mild MR 87F h/o asthma, dementia p/w hip fracture hip fx s/p repair - post op hip repair - in setting of critical would closely monitor volume status and use IV fluids cautiously aortic stenosis - critical aortic stenosis - patient is asymptomatic currently, has dementia difficult to obtain history, no signs of HF - spoke with patient's nephew Yury, known diagnosis of , per patient deferring further workup at this point due to dementia asthma - denies dyspnea - manage per primary dementia - manage per primary
[2018-03-30] MEDS: SENNOSIDES 8.6MG TABLET (FP) PO SCH (21:01)
[2018-03-30] MEDS: DOCUSATE SODIUM 100 MG CAPSULE (FP) PO SCH (21:01)
[2018-03-30] MEDS: MORPHINE SULFATE 2 MG/ML VIAL IVPUSH PRN (22:48)
[2018-03-31] MEDS: MORPHINE SULFATE 2 MG/ML VIAL IVPUSH PRN (06:44)
[2018-03-31] MEDS: ALBUTEROL SO4 2.5/IPRATROPIUM 0.5 INH SOL 3 ML VIAL.NEB. NEB SCH ×4 (07:37→20:30)
[2018-03-31 08:10] LABS: BASO % 0.5 % (0-2.0); EOS % 0.7 % (0-4.5); HEMATOCRIT 28.1 % (32.4-45.2); HEMOGLOBIN 9.5 GM/dL (10.7-15.3); LYMPH % 13.7 % (8-40); MCH 29.6 pg (25.7-33.7); MCHC 33.8 g/dl (32.0-36.0); MEAN CELL VOLUME 87.7 fl (80-96); MEAN PLT VOLUME 9.7 fl (7.5-11.1); NEUT % 77.1 % (42.8-82.8); PLATELET COUNT 103 K/MM3 (134-434); RDW 16.6 % (11.6-15.6); WHITE BLOOD COUNT 15.7 K/mm3 (4.0-10.0)
[2018-03-31 09:04] LABS: ANION GAP 7 MMOL/L (8-16); BLOOD UREA NITROGEN 58 mg/dL (7-18); CHLORIDE 105 mmol/L (98-107); CO2 28 mmol/L (21-32); CREATININE 1.3 mg/dL (0.55-1.3); GLUCOSE,RANDOM 101 mg/dL (74-106); POTASSIUM 4.2 mmol/L (3.5-5.1); SODIUM 140 mmol/L (136-145)
[2018-03-31] MEDS ORDERED: PT OWN MED DRAWER 7, Y5N ONE (09:55)
[2018-03-31] MEDS: ASCORBIC ACID 500 MG TABLET (FP) PO SCH (09:58)
[2018-03-31] MEDS: FERROUS SO4 325 MG TABLET (FP) PO SCH (09:58)
[2018-03-31] MEDS: CHOLECALCIFEROL (VITAMIN D3) 1,000 UNIT TABLET (FP) PO SCH (09:58)
--- NOTE | 2018-03-31 10:09 | PN ---
Progress Note (short form) - Note Progress Note: 87 y/o female with Dementia, Breast/Axillary nodules and Asthma. S/p rt hip pinning due to fall. Denies pain. Appears comfortable but confused. Vital Signs Period Temp Pulse Resp BP Sys/Hood Pulse Ox Last 24 Hr 98.3 F-98.6 F 70-84 18-20 91-138/50-71 98 CBC, BMP 03/31/18 07:35 03/31/18 07:35 HEENT- NL Neck-Supple Lungs- CTAB Heart- S1/S2 Abd- Soft, NT - Urine Clear Ext- No LE edema Active Medications Albuterol/Ipratropium (Duoneb -) 1 amp NEB RQID [facility] Last Admin: 03/30/18 19:50 Dose: 1 amp Ascorbic Acid (Vitamin C -) 500 mg PO DAILY [facility] Last Admin: 03/31/18 09:58 Dose: 500 mg Cholecalciferol (Vitamin D3 -) 1,000 unit PO DAILY [facility] Last Admin: 03/31/18 09:58 Dose: 1,000 unit Docusate Sodium (Colace -) 200 mg PO [facility] Last Admin: 03/30/18 21:01 Dose: 200 mg Fentanyl (Sublimaze Injection -) 25 mcg IVPUSH [id number] PRN PRN Reason: PAIN-PACU ORDER X 4 DOSES ONLY Ferrous Sulfate (Feosol -) 325 mg PO DAILY [facility] Last Admin: 03/31/18 09:58 Dose: 325 mg Lactated Ringer's (Lactated Ringers Solution) 1,000 mls @ 75 mls/hr IV ASDIR [facility] Last Admin: 03/30/18 10:09 Dose: 75 mls/hr Morphine Sulfate (Morphine Sulfate) 2 mg IVPUSH Q4H PRN PRN Reason: PAIN LEVEL 6-10 Last Admin: 03/31/18 06:44 Dose: 2 mg Ondansetron HCl (Zofran Injection) 4 mg IVPUSH Q6H PRN PRN Reason: NAUSEA AND/OR VOMITING Senna (Senna -) 1 tab PO [facility] Last Admin: 03/30/18 21:01 Dose: 1 tab assmt POD #2 right hip screws Acute RT Femoral neck fx Transfuse 1 u PRBC Activity per Ortho- walked 3 feet Pain well controlled urinary obstruction Kyle cath in place Elevated WBC ct UA/ C& S ordered Dementia Baseline- Behavior stable Breast/ Axillary Masses - no intervention per HCP Asthma Cont Duoneb Problem List - Problems (1) Fracture of femoral neck, right Code(s): S72.001A - FRACTURE OF UNSP PART OF NECK OF RIGHT FEMUR, INIT (2) Dementia Code(s): F03.90 - UNSPECIFIED DEMENTIA WITHOUT BEHAVIORAL DISTURBANCE (3) Femoral neck fracture Code(s): S72.009A - FRACTURE OF UNSP PART OF NECK OF UNSP FEMUR, INIT
--- NOTE | 2018-03-31 11:07 | PN ---
Progress Note (short form) - Note Progress Note: Ortho Pt seen and examined s/p right hip cannulated screws pod #2 Selected Entries 03/30/18 03/31/18 23:05 05:30 Temperature 98.3 F Pulse Rate 70 Respiratory 20 Rate Blood Pressure 129/54 L Laboratory Tests 03/31/18 07:35 WBC 15.7 H Hgb 9.5 L Hct 28.1 L Plt Count 103 L incision c/d/i, calf soft, nt nvi a/p PT if able PWB dtv ppx pain control d/c planning to snf
--- NOTE | 2018-03-31 13:33 | PN ---
Progress Note (short form) - Note Progress Note: s: no complaints today. no cp, palps, dyspnea Current Medications Albuterol/Ipratropium (Duoneb -) 1 amp NEB RQID [facility] Last Admin: 03/31/18 12:43 Dose: 1 amp Ascorbic Acid (Vitamin C -) 500 mg PO DAILY [facility] Last Admin: 03/31/18 09:58 Dose: 500 mg Cholecalciferol (Vitamin D3 -) 1,000 unit PO DAILY [facility] Last Admin: 03/31/18 09:58 Dose: 1,000 unit Docusate Sodium (Colace -) 200 mg PO [facility] Last Admin: 03/30/18 21:01 Dose: 200 mg Fentanyl (Sublimaze Injection -) 25 mcg IVPUSH [id number] PRN PRN Reason: PAIN-PACU ORDER X 4 DOSES ONLY Ferrous Sulfate (Feosol -) 325 mg PO DAILY [facility] Last Admin: 03/31/18 09:58 Dose: 325 mg Lactated Ringer's (Lactated Ringers Solution) 1,000 mls @ 75 mls/hr IV ASDIR [facility] Last Admin: 03/30/18 10:09 Dose: 75 mls/hr Morphine Sulfate (Morphine Sulfate) 2 mg IVPUSH Q4H PRN PRN Reason: PAIN LEVEL 6-10 Last Admin: 03/31/18 06:44 Dose: 2 mg Ondansetron HCl (Zofran Injection) 4 mg IVPUSH Q6H PRN PRN Reason: NAUSEA AND/OR VOMITING Senna (Senna -) 1 tab PO [facility] Last Admin: 03/30/18 21:01 Dose: 1 tab Vital Signs: Vital Signs Period Temp Pulse Resp BP Sys/Hood Pulse Ox Last 24 Hr 97.8 F-98.6 F 70-84 18-20 91-138/50-75 94-98 Constitutional: Yes: No Distress, Calm Eyes: Yes: Conjunctiva Clear, EOM Intact HENT: Yes: Atraumatic, Normocephalic Neck: Yes: Supple, Trachea Midline Respiratory: Yes: Regular, CTA Bilaterally (poor effort, auscultated anteriorly) Gastrointestinal: Yes: Normal Bowel Sounds, Soft Cardiovascular: Yes: Regular Rate and Rhythm JVD: No Carotid Bruit: No Heart Sounds: Yes: S1, S2 Murmur: Yes: Systolic Murmur, Grade 3 (RUSB, crescendo-decrescendo) Musculoskeletal: Yes: Joint Swelling Extremities: Yes: External Rotation Edema: No Peripheral Pulses WNL: Yes Peripheral Pulses: 2+ Left Doralis Pedis, 2+ Right Dorsalis Pedis Integumentary: Yes: WNL Neurological: Yes: Alert, Oriented Psychiatric: Yes: Alert, Oriented Assessment/Plan EKG: sinus bradycardia with sinus arrhythmia, nonspecific ST abnormality echo 03/2018 mod conc LVH, nl EF, AV severely calcified, RVSP 50-60 mmHg, severe , mean gradient 88 mmHg, PG 140 mmHg, tr to mild MR 87F h/o asthma, dementia p/w hip fracture hip fx s/p repair - post op hip repair - in setting of critical would closely monitor volume status and use IV fluids cautiously aortic stenosis - critical aortic stenosis - patient is asymptomatic currently, has dementia difficult to obtain history, no signs of HF - spoke with patient's nephew Yury, known diagnosis of , per patient deferring further workup at this point due to dementia - stable from cardiac perspective asthma - denies dyspnea - manage per primary dementia - manage per primary
[2018-03-31 16:43] LABS: URINE APPEARANCE CLEAR; URINE BILIRUBIN NEGATIVE (<2.0 mg/dL); URINE COLOR YELLOW; URINE GLUCOSE (UA) NEGATIVE (NEGATIVE); URINE KETONE NEGATIVE (NEGATIVE); URINE LEUK ESTERASE 2+ (NEGATIVE); URINE NITRITE NEGATIVE (NEGATIVE); URINE PROTEIN NEGATIVE (NEGATIVE); URINE UROBILINOGEN NEGATIVE mg/dL (0.2-1.0)
[2018-03-31 18:32] LABS: EPI CELLS RARE /HPF (FEW); URINE BACTERIA RARE /hpf (NONE SEEN); URINE HYALINE CAST 1 /lpf; URINE MUCUS RARE
[2018-03-31] MEDS: DOCUSATE SODIUM 100 MG CAPSULE (FP) PO SCH (21:54)
[2018-03-31] MEDS: SENNOSIDES 8.6MG TABLET (FP) PO SCH (21:55)
[2018-03-31 23:27] VITALS: BMI 18.6
[2018-04-01] MEDS: ALBUTEROL SO4 2.5/IPRATROPIUM 0.5 INH SOL 3 ML VIAL.NEB. NEB SCH ×4 (07:35→20:10)
[2018-04-01] MEDS: FERROUS SO4 325 MG TABLET (FP) PO SCH (10:17)
[2018-04-01] MEDS: ASCORBIC ACID 500 MG TABLET (FP) PO SCH (10:17)
[2018-04-01] MEDS: CHOLECALCIFEROL (VITAMIN D3) 1,000 UNIT TABLET (FP) PO SCH (10:17)
[2018-04-01] MEDS ORDERED: LACTATED RINGERS SOLUTION 1,000 ML IV SCH (11:42)
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
[2018-04-01 13:24] LABS: ANION GAP 8 MMOL/L (8-16); BLOOD UREA NITROGEN 40 mg/dL (7-18); CALCIUM 9.1 mg/dL (8.5-10.1); CHLORIDE 108 mmol/L (98-107); CO2 29 mmol/L (21-32); CREATININE 0.9 mg/dL (0.55-1.3); GLUCOSE,RANDOM 96 mg/dL (74-106); POTASSIUM 4.5 mmol/L (3.5-5.1); SODIUM 144 mmol/L (136-145)
--- NOTE | 2018-04-01 19:21 | PN ---
Progress Note (short form) - Note Progress Note: Ortho Pt seen and examined s/p right hip cannulated screws pod #3 Selected Entries 04/01/18 04/01/18 08:00 14:48 Temperature 97.8 F Pulse Rate 90 Respiratory 18 Rate Blood Pressure 120/80 incision c/d/i, calf soft, nt nvi a/p PT if able PWB dvt ppx pain control d/c planning to snf
[2018-04-01] MEDS ORDERED: MORPHINE SULFATE 2 MG/ML VIAL IVPUSH ONE (21:05)
[2018-04-01] MEDS: DOCUSATE SODIUM 100 MG CAPSULE (FP) PO SCH (21:08)
[2018-04-01] MEDS: SENNOSIDES 8.6MG TABLET (FP) PO SCH (21:08)
--- NOTE | 2018-04-01 21:21 | PN ---
Progress Note (short form) - Note Progress Note: patient seen and examined unable to provide any hx s/p right hip screws Vital Signs Period Temp Pulse Resp BP Sys/Hood Pulse Ox Last 24 Hr 97.4 F-97.8 F 60-84 18-20 120-150/52-76 94 neck supple heart S1/S2 SM 3/6 left breast with multiple hard irregular masses ( HCP aware) lung clear bilat abd soft non tender ext no edema / +2 pulses equally no calf tenderness / good cap refill CBC, BMP 03/31/18 07:35 04/01/18 12:16 CBC, BMP 03/30/18 06:18 03/30/18 06:18 Active Medications Albuterol/Ipratropium (Duoneb -) 1 amp NEB RQID [facility] Last Admin: 04/01/18 20:10 Dose: 1 amp Ascorbic Acid (Vitamin C -) 500 mg PO DAILY [facility] Last Admin: 04/01/18 10:17 Dose: 500 mg Cholecalciferol (Vitamin D3 -) 1,000 unit PO DAILY [facility] Last Admin: 04/01/18 10:17 Dose: 1,000 unit Docusate Sodium (Colace -) 200 mg PO HS [facility] Last Admin: 04/01/18 21:08 Dose: 200 mg Ferrous Sulfate (Feosol -) 325 mg PO DAILY [facility] Last Admin: 04/01/18 10:17 Dose: 325 mg Ondansetron HCl (Zofran Injection) 4 mg IVPUSH Q6H PRN PRN Reason: NAUSEA AND/OR VOMITING Senna (Senna -) 1 tab PO HS [facility] Last Admin: 04/01/18 21:08 Dose: 1 tab assmt s/p right hip scews urinary obstruction Dementia Acute right femoral neck Fx --observe for HF Breast Mass - no intervention per HCP Asthma Plan transfuse 1 pRBC off ASA fluid management pain management nebulizer tx activity per Ortho Problem List - Problems (1) Fracture of femoral neck, right Code(s): S72.001A - FRACTURE OF UNSP PART OF NECK OF RIGHT FEMUR, INIT (2) Dementia Code(s): F03.90 - UNSPECIFIED DEMENTIA WITHOUT BEHAVIORAL DISTURBANCE (3) Femoral neck fracture Code(s): S72.009A - FRACTURE OF UNSP PART OF NECK OF UNSP FEMUR, INIT
[2018-04-02] MEDS: ALBUTEROL SO4 2.5/IPRATROPIUM 0.5 INH SOL 3 ML VIAL.NEB. NEB SCH ×4 (07:30→20:50)
[2018-04-02 08:39] LABS: BASO % 0.6 % (0-2.0); EOS % 3.8 % (0-4.5); HEMATOCRIT 26.1 % (32.4-45.2); HEMOGLOBIN 8.8 GM/dL (10.7-15.3); LYMPH % 18.9 % (8-40); MCH 30.3 pg (25.7-33.7); MCHC 33.7 g/dl (32.0-36.0); MEAN CELL VOLUME 89.9 fl (80-96); NEUT % 67.7 % (42.8-82.8); PLATELET COUNT 113 K/MM3 (134-434); RBC 2.91 M/mm3 (3.60-5.2); RDW 15.6 % (11.6-15.6); WHITE BLOOD COUNT 8.9 K/mm3 (4.0-10.0)
[2018-04-02 08:52] LABS: ANION GAP 5 MMOL/L (8-16); BLOOD UREA NITROGEN 29 mg/dL (7-18); CALCIUM 9.2 mg/dL (8.5-10.1); CHLORIDE 109 mmol/L (98-107); CO2 30 mmol/L (21-32); CREATININE 0.8 mg/dL (0.55-1.3); GLUCOSE,RANDOM 97 mg/dL (74-106); POTASSIUM 4.6 mmol/L (3.5-5.1); SODIUM 144 mmol/L (136-145)
[2018-04-02] MEDS: CHOLECALCIFEROL (VITAMIN D3) 1,000 UNIT TABLET (FP) PO SCH (09:23)
[2018-04-02] MEDS: ASCORBIC ACID 500 MG TABLET (FP) PO SCH (09:23)
[2018-04-02] MEDS: FERROUS SO4 325 MG TABLET (FP) PO SCH (09:23)
--- NOTE | 2018-04-02 11:10 | PN ---
Progress Note (short form) - Note Progress Note: Chief Complaint: hip frx History of Present Illness: denies sob no cp, palpit, presyncope - Current Medication List Current Medications Generic Name Dose Route Start Last Admin Trade Name Freq PRN Reason Stop Dose Admin Albuterol/Ipratropium 1 amp 03/29/18 20:00 04/01/18 20:10 Duoneb - NEB 1 amp RQID [facility] Administration Ascorbic Acid 500 mg 03/30/18 10:00 04/02/18 09:23 Vitamin C - PO 500 mg DAILY [facility] Administration Cholecalciferol 1,000 unit 03/30/18 10:00 04/02/18 09:23 Vitamin D3 - PO 1,000 unit DAILY [facility] Administration Docusate Sodium 200 mg 03/29/18 22:00 04/01/18 21:08 Colace - PO 200 mg HS [facility] Administration Ferrous Sulfate 325 mg 03/30/18 10:00 04/02/18 09:23 Feosol - PO 325 mg DAILY [facility] Administration Ondansetron HCl 4 mg 03/29/18 18:22 Zofran Injection IVPUSH Q6H PRN NAUSEA AND/OR VOMITING Senna 1 tab 03/29/18 22:00 04/01/18 21:08 Senna - PO 1 tab HS [facility] Administration - Objective Vital Signs: Vital Signs Period Temp Pulse Resp BP Sys/Hood Pulse Ox Last 24 Hr 97.8 F-99.0 F 68-90 20-20 118-120/52-80 96-97 Constitutional: Yes: Well Nourished, No Distress, Calm Cardiovascular: Yes: Regular Rate and Rhythm, Murmur (DUSTY LUSB, ? s2 split), S1 , S2. No: Gallop Respiratory: Yes: Regular, CTA Bilaterally. No: Accessory Muscle Use, Rales, Wheezes Extremities: No: Cold Edema: No Neurological: Yes: Alert. No: Oriented Psychiatric: No: Agitated no jaundice diaphoresis Labs: CBC, BMP 04/02/18 07:13 04/02/18 07:13 Assessment/Plan EKG: sinus bradycardia with sinus arrhythmia, nonspecific ST abnormality echo 03/2018 mod conc LVH, nl EF, AV severely calcified, RVSP 50-60 mmHg, severe , mean gradient 88 mmHg, PG 140 mmHg, tr to mild MR 87F h/o asthma, dementia p/w hip fracture hip fx s/p repair - post op hip repair - in setting of critical would closely monitor volume status and use IV fluids cautiously TIFFANY: - creat bumped to 1.5 postop, now improved after ivfs. aortic stenosis - critical aortic stenosis - patient is asymptomatic currently, has dementia difficult to obtain history. - no signs of HF on exam - dr espinal spoke with patient's nephew Yury: he states she has known diagnosis of , per patient deferring further workup at this point due to significant dementia dementia - manage per primary
--- NOTE | 2018-04-02 12:52 | PN ---
Progress Note (short form) - Note Progress Note: patient seen and examined unable to provide any hx s/p right hip screws Vital Signs Period Temp Pulse Resp BP Sys/Hood Pulse Ox Last 24 Hr 97.4 F-97.8 F 60-84 18-20 120-150/52-76 94 neck supple heart S1/S2 SM 3/6 left breast with multiple hard irregular masses ( HCP aware) lung clear bilat abd soft non tender ext no edema / +2 pulses equally no calf tenderness / good cap refill CBC, BMP 04/02/18 07:13 04/02/18 07:13 CBC, BMP 03/31/18 07:35 04/01/18 12:16 Microbiology 03/31/18 14:30 Urine - Urine - Catheterized Urine Culture - Final NO GROWTH OBTAINED Active Medications Albuterol/Ipratropium (Duoneb -) 1 amp NEB RQID [facility] Last Admin: 04/02/18 07:30 Dose: Not Given Ascorbic Acid (Vitamin C -) 500 mg PO DAILY [facility] Last Admin: 04/02/18 09:23 Dose: 500 mg Cholecalciferol (Vitamin D3 -) 1,000 unit PO DAILY [facility] Last Admin: 04/02/18 09:23 Dose: 1,000 unit Docusate Sodium (Colace -) 200 mg PO [facility] Last Admin: 04/01/18 21:08 Dose: 200 mg Ferrous Sulfate (Feosol -) 325 mg PO DAILY [facility] Last Admin: 04/02/18 09:23 Dose: 325 mg Ondansetron HCl (Zofran Injection) 4 mg IVPUSH Q6H PRN PRN Reason: NAUSEA AND/OR VOMITING Senna (Senna -) 1 tab PO [facility] Last Admin: 04/01/18 21:08 Dose: 1 tab assmt drop in H/H s/p right hip scews urinary obstruction --failed trial of voiding Dementia Acute right femoral neck Fx --observe for HF Breast Mass - no intervention per HCP Asthma Plan transfuse 1 pRBC off ASA fluid management pain management nebulizer tx activity per Ortho Problem List - Problems (1) Fracture of femoral neck, right Code(s): S72.001A - FRACTURE OF UNSP PART OF NECK OF RIGHT FEMUR, INIT (2) Dementia Code(s): F03.90 - UNSPECIFIED DEMENTIA WITHOUT BEHAVIORAL DISTURBANCE (3) Femoral neck fracture Code(s): S72.009A - FRACTURE OF UNSP PART OF NECK OF UNSP FEMUR, INIT
[2018-04-02] MEDS ORDERED: HALOPERIDOL LACTATE 5 MG/ML IM ONE (15:00)
[2018-04-02] MEDS ORDERED: LORazepam 2 MG/ML SDV VIAL IM ONE (16:00)
[2018-04-02 16:57] LABS: HEMATOCRIT 26.9 % (32.4-45.2); MCH 30.5 pg (25.7-33.7); MCHC 33.3 g/dl (32.0-36.0); MEAN CELL VOLUME 91.6 fl (80-96); MEAN PLT VOLUME 9.7 fl (7.5-11.1); PLATELET COUNT 130 K/MM3 (134-434); RBC 2.94 M/mm3 (3.60-5.2); RDW 15.9 % (11.6-15.6)
[2018-04-02] MEDS: DOCUSATE SODIUM 100 MG CAPSULE (FP) PO SCH (23:43)
[2018-04-02] MEDS: SENNOSIDES 8.6MG TABLET (FP) PO SCH (23:43)
[2018-04-03] MEDS: ALBUTEROL SO4 2.5/IPRATROPIUM 0.5 INH SOL 3 ML VIAL.NEB. NEB SCH ×4 (07:15→20:00)
[2018-04-03 07:22] LABS: HEMATOCRIT 27.2 % (32.4-45.2); HEMOGLOBIN 9.1 GM/dL (10.7-15.3); MCH 30.4 pg (25.7-33.7); MCHC 33.6 g/dl (32.0-36.0); MEAN CELL VOLUME 90.4 fl (80-96); MEAN PLT VOLUME 8.9 fl (7.5-11.1); PLATELET COUNT 130 K/MM3 (134-434); RBC 3.01 M/mm3 (3.60-5.2); RDW 15.9 % (11.6-15.6); WHITE BLOOD COUNT 9.8 K/mm3 (4.0-10.0)
[2018-04-03] MEDS: ASCORBIC ACID 500 MG TABLET (FP) PO SCH (09:17)
[2018-04-03] MEDS: FERROUS SO4 325 MG TABLET (FP) PO SCH (09:17)
[2018-04-03] MEDS: CHOLECALCIFEROL (VITAMIN D3) 1,000 UNIT TABLET (FP) PO SCH (09:17)
[2018-04-03] MEDS: ALBUTEROL SO4 8 GM HFA INHALER IH PRN ×3 (11:22→21:19)
--- NOTE | 2018-04-03 11:30 | DS ---
Physical Examination Vital Signs: Vital Signs Temperature 98.8 F 04/03/18 08:34 Pulse Rate 93 H 04/03/18 08:34 Respiratory Rate 18 04/03/18 08:34 Blood Pressure 143/65 04/03/18 08:34 O2 Sat by Pulse Oximetry (%) 97 04/02/18 21:00 Findings/Remarks: Patient is an 87 year old female with a PMH of Asthma and Dementia who was BIBEMS after being found on the floor this morning at her [facility]. Patient is alert , but not oriented and asks why she is here -- which she identifies as [place] , but is unable to state she is at the hospital. Does not recall falling out of bed and states since she is at the hospital would like a lump in her L underarm evaluated. ROS is positive for R "groin pain" when she moves her R leg. States this pain has been going on for 2-3 weeks. History is obtained from [address] [place] [address] transfer paperwork, and discussion with nurse over the phone.-- Fall was unwitnessed. patient underwent ORIF right hip / tolerated procedure well. Post op course complicated with urinary obstruction required Sinclair placement -- she has failed 2 trials of voiding and had sinclair re inserted and now removed and voiding freely. She also required blood transfusion -- h/h has remained stable after surgery. Patient with dense dementia - able to bear weight partially/ will need close observation as patient does not follow directions and has no impulse control. patient for transfer to [facility] today Constitutional: Yes: No Distress, Anxious Eyes: Yes: Conjunctiva Clear, EOM Intact HENT: Yes: Atraumatic, Normocephalic Neck: Yes: Supple, Trachea Midline Cardiovascular: Yes: Regular Rate and Rhythm Respiratory: Yes: Regular Gastrointestinal: Yes: Normal Bowel Sounds ...Rectal Exam: Yes: Deferred Renal/: Yes: Other Extremities: Yes: Other (right hip surgical site clean) Edema: No Peripheral Pulses WNL: Yes Integumentary: Yes: WNL Neurological: Yes: Pre-Existing Deficit Psychiatric: Yes: Alert Labs: CBC, BMP 04/03/18 06:10 04/02/18 07:13 Discharge Summary Reason For Visit: FRACTURE OF NECK FEMUR Current Active Problems Dementia (Acute) Femoral neck fracture (Acute) Fracture of femoral neck, right (Acute) Condition: Fair - Instructions Referrals: Angela Terrazas MD [Primary Care Provider] - - Home Medications Comprehensive Discharge Medication List: Ambulatory Orders ASA - PO DAILY 03/28/18 Docusate Sodium 2 cap PO HS 03/28/18 Ferrous Sulfate 1 tab PO DAILY 03/28/18 Senna 1 tab PO HS 03/28/18 Ventolin Hfa Inhaler -200 2 puff QID 03/28/18 Vitamin C 1 tab PO DAILY 03/28/18 Vitamin D2 units PO MONTHLY 03/28/18 Vitamin D3 1 tablet PO DAILY 03/28/18 miralax i scoop with 4 oz fluids lately
--- NOTE | 2018-04-03 11:30 | PN ---
Progress Note (short form) - Note Progress Note: Chief Complaint: hip frx History of Present Illness: denies sob no cp, palpit, presyncope - Current Medication List Current Medications Generic Name Dose Route Start Last Admin Trade Name Freq PRN Reason Stop Dose Admin Acetaminophen 650 mg 04/02/18 12:53 Tylenol - PO Q4H PRN PAIN LEVEL 1-5 Albuterol Sulfate 2 puff 04/02/18 15:56 04/03/18 11:22 Ventolin Hfa Inhaler - IH 2 puff Q4H PRN Administration SHORTNESS OF BREATH Albuterol/Ipratropium 1 amp 03/29/18 20:00 04/03/18 11:26 Duoneb - NEB 1 amp RQID SANGEETA Administration Ascorbic Acid 500 mg 03/30/18 10:00 04/03/18 09:17 Vitamin C - PO 500 mg DAILY SANGEETA Administration Cholecalciferol 1,000 unit 03/30/18 10:00 04/03/18 09:17 Vitamin D3 - PO 1,000 unit DAILY SANGEETA Administration Docusate Sodium 200 mg 03/29/18 22:00 04/02/18 23:43 Colace - PO Not Given HS SANGEETA Ferrous Sulfate 325 mg 03/30/18 10:00 04/03/18 09:17 Feosol - PO 325 mg DAILY SANGEETA Administration Ondansetron HCl 4 mg 03/29/18 18:22 Zofran Injection IVPUSH Q6H PRN NAUSEA AND/OR VOMITING Senna 1 tab 03/29/18 22:00 04/02/18 23:43 Senna - PO Not Given HS SANGEETA - Objective Vital Signs: Vital Signs Period Temp Pulse Resp BP Sys/Hood Pulse Ox Last 24 Hr 98.4 F-98.8 F 74-93 18-20 120-143/65-80 97 Constitutional: Yes: Well Nourished, No Distress, Calm Cardiovascular: Yes: Regular Rate and Rhythm, Murmur (DUSTY LUSB, ? s2 split), S1 , S2. No: Gallop Respiratory: Yes: Regular, CTA Bilaterally. No: Accessory Muscle Use, Rales, Wheezes Extremities: No: Cold Edema: No Neurological: Yes: Alert. No: Oriented Psychiatric: No: Agitated no jaundice diaphoresis Labs: CBC, BMP 04/03/18 06:10 04/02/18 07:13 Assessment/Plan EKG: sinus bradycardia with sinus arrhythmia, nonspecific ST abnormality echo 03/2018 mod conc LVH, nl EF, AV severely calcified, RVSP 50-60 mmHg, severe , mean gradient 88 mmHg, PG 140 mmHg, tr to mild MR 87F h/o asthma, dementia p/w hip fracture hip fx s/p repair - post op hip repair, doing well TIFFANY: - creat bumped to 1.5 postop, now improved after ivfs. aortic stenosis - critical aortic stenosis - patient is asymptomatic currently, has dementia difficult to obtain history. - no signs of HF on exam - dr espinal spoke with patient's nephew Yury: he states she has known diagnosis of , per patient deferring further workup at this point due to significant dementia dementia - manage per primary
[2018-04-03] MEDS ORDERED: PT OWN MED DRAWER 7, Y5N ONE ×2 (16:05→20:42)
[2018-04-03] MEDS: ACETAMINOPHEN 325 MG TABLET (FP) PO PRN (21:16)
[2018-04-03] MEDS: SENNOSIDES 8.6MG TABLET (FP) PO SCH (21:16)
[2018-04-03] MEDS: DOCUSATE SODIUM 100 MG CAPSULE (FP) PO SCH (21:18)
--- NOTE | 2018-04-03 23:24 | FALL ---
Fall Exam - Event Witnessed fall: No Location of Fall: Patient Room Fall from: Bed - Pre-Fall Mental Status: Disoriented Current Medications: Current Medications Generic Name Dose Route Start Last Admin Trade Name Yanni PRN Reason Stop Dose Admin Acetaminophen 650 mg 04/02/18 12:53 04/03/18 21:16 Tylenol - PO 650 mg Q4H PRN Administration PAIN LEVEL 1-5 Albuterol Sulfate 2 puff 04/02/18 15:56 04/03/18 21:19 Ventolin Hfa Inhaler - IH 2 puff Q4H PRN Administration SHORTNESS OF BREATH Albuterol/Ipratropium 1 amp 03/29/18 20:00 04/03/18 20:00 Duoneb - NEB 1 amp RQID SANGEETA Administration Ascorbic Acid 500 mg 03/30/18 10:00 04/03/18 09:17 Vitamin C - PO 500 mg DAILY SANGEETA Administration Cholecalciferol 1,000 unit 03/30/18 10:00 04/03/18 09:17 Vitamin D3 - PO 1,000 unit DAILY SANGEETA Administration Docusate Sodium 200 mg 03/29/18 22:00 04/03/18 21:18 Colace - PO 200 mg HS SANGEETA Administration Ferrous Sulfate 325 mg 03/30/18 10:00 04/03/18 09:17 Feosol - PO 325 mg DAILY SANGEETA Administration Ondansetron HCl 4 mg 03/29/18 18:22 Zofran Injection IVPUSH Q6H PRN NAUSEA AND/OR VOMITING Senna 1 tab 03/29/18 22:00 04/03/18 21:16 Senna - PO 1 tab HS SANGEETA Administration - Post-Fall Patient Outcome: Pain Only Exam Findings: Neuro- AAOx1. CN 2-12 intact. Strength 4/5 upper extremities. right leg 1/5 strength, left left 3/5 strength Treatment: None Vital Signs: Vital Signs Temperature 98 F 04/03/18 21:00 Pulse Rate 80 04/03/18 21:00 Respiratory Rate 18 04/03/18 21:00 Blood Pressure 140/78 04/03/18 21:00 O2 Sat by Pulse Oximetry (%) 97 04/02/18 21:00 LOC Post-Fall: Awake, Alert Identify factors for HIGH RISK for Head Injury: None of the above
[2018-04-04] MEDS ORDERED: PT OWN MED DRAWER 7, Y5N ONE (08:10)
[2018-04-04] MEDS: ALBUTEROL SO4 2.5/IPRATROPIUM 0.5 INH SOL 3 ML VIAL.NEB. NEB SCH ×4 (09:00→20:10)
[2018-04-04] MEDS: ASCORBIC ACID 500 MG TABLET (FP) PO SCH (09:33)
[2018-04-04] MEDS: FERROUS SO4 325 MG TABLET (FP) PO SCH (09:33)
[2018-04-04] MEDS: CHOLECALCIFEROL (VITAMIN D3) 1,000 UNIT TABLET (FP) PO SCH (09:33)
--- NOTE | 2018-04-04 10:39 | PN ---
Progress Note (short form) - Note Progress Note: patient seen and examined sitting in hallway s/p fall yesterday -- no official reading from xray at this time appears to be no displacement but will await reading discharge postponed yesterday unable to provide any hx s/p right hip screws Vital Signs Period Temp Pulse Resp BP Sys/Hood Pulse Ox Last 24 Hr 98 F-98.6 F 69-80 18-20 102-140/58-78 98 neck supple heart S1/S2 SM 3/6 left breast with multiple hard irregular masses ( HCP aware) lung clear bilat abd soft non tender ext right lat thigh echymotic / swollen / dressing dry no edema / +2 pulses equally no calf tenderness / good cap refill CBC, BMP 04/03/18 06:10 04/02/18 07:13 CBC, BMP 04/02/18 07:13 04/02/18 07:13 Microbiology 03/31/18 14:30 Urine - Urine - Catheterized Urine Culture - Final NO GROWTH OBTAINED Active Medications Acetaminophen (Tylenol -) 650 mg PO Q4H PRN PRN Reason: PAIN LEVEL 1-5 Last Admin: 04/03/18 21:16 Dose: 650 mg Albuterol Sulfate (Ventolin Hfa Inhaler -) 2 puff IH Q4H PRN PRN Reason: SHORTNESS OF BREATH Last Admin: 04/03/18 21:19 Dose: 2 puff Albuterol/Ipratropium (Duoneb -) 1 amp NEB RQID [facility] Last Admin: 04/04/18 09:00 Dose: 1 amp Ascorbic Acid (Vitamin C -) 500 mg PO DAILY [facility] Last Admin: 04/04/18 09:33 Dose: 500 mg Cholecalciferol (Vitamin D3 -) 1,000 unit PO DAILY [facility] Last Admin: 04/04/18 09:33 Dose: 1,000 unit Docusate Sodium (Colace -) 200 mg PO HS [facility] Last Admin: 04/03/18 21:18 Dose: 200 mg Ferrous Sulfate (Feosol -) 325 mg PO DAILY [facility] Last Admin: 04/04/18 09:33 Dose: 325 mg Ondansetron HCl (Zofran Injection) 4 mg IVPUSH Q6H PRN PRN Reason: NAUSEA AND/OR VOMITING Senna (Senna -) 1 tab PO [facility] Last Admin: 04/03/18 21:16 Dose: 1 tab assmt s/p fall -- xray reading pending s/p right hip scews 2/2 acute right femoral head fracture urinary obstruction --voiding freely Dementia --observe for HF Breast Mass - no intervention per HCP Asthma Plan follow up x ray - able to bear weight will not proceed with PT until xray reading activity per ORTHo off ASA fluid management avoid fluid overload pain management nebulizer tx arrangements for D/C in place Problem List - Problems (1) Fracture of femoral neck, right Code(s): S72.001A - FRACTURE OF UNSP PART OF NECK OF RIGHT FEMUR, INIT (2) Dementia Code(s): F03.90 - UNSPECIFIED DEMENTIA WITHOUT BEHAVIORAL DISTURBANCE (3) Femoral neck fracture Code(s): S72.009A - FRACTURE OF UNSP PART OF NECK OF UNSP FEMUR, INIT
--- NOTE | 2018-04-04 11:08 | PN ---
Progress Note (short form) - Note Progress Note: s: s/p fall last night. no chest pain, palps, sob Current Medications Acetaminophen (Tylenol -) 650 mg PO Q4H PRN PRN Reason: PAIN LEVEL 1-5 Last Admin: 04/03/18 21:16 Dose: 650 mg Albuterol Sulfate (Ventolin Hfa Inhaler -) 2 puff IH Q4H PRN PRN Reason: SHORTNESS OF BREATH Last Admin: 04/03/18 21:19 Dose: 2 puff Albuterol/Ipratropium (Duoneb -) 1 amp NEB RQID [facility] Last Admin: 04/04/18 09:00 Dose: 1 amp Ascorbic Acid (Vitamin C -) 500 mg PO DAILY [facility] Last Admin: 04/04/18 09:33 Dose: 500 mg Cholecalciferol (Vitamin D3 -) 1,000 unit PO DAILY [facility] Last Admin: 04/04/18 09:33 Dose: 1,000 unit Docusate Sodium (Colace -) 200 mg PO HS [facility] Last Admin: 04/03/18 21:18 Dose: 200 mg Ferrous Sulfate (Feosol -) 325 mg PO DAILY [facility] Last Admin: 04/04/18 09:33 Dose: 325 mg Ondansetron HCl (Zofran Injection) 4 mg IVPUSH Q6H PRN PRN Reason: NAUSEA AND/OR VOMITING Senna (Senna -) 1 tab PO HS [facility] Last Admin: 04/03/18 21:16 Dose: 1 tab - Objective Vital Signs: Vital Signs Period Temp Pulse Resp BP Sys/Hood Pulse Ox Last 24 Hr 98 F-98.6 F 69-80 18-20 102-140/58-78 98 Constitutional: Yes: Well Nourished, No Distress, Calm Cardiovascular: Yes: Regular Rate and Rhythm, Murmur (DUSTY LUSB, ? s2 split), S1 , S2. No: Gallop Respiratory: Yes: Regular, CTA Bilaterally. No: Accessory Muscle Use, Rales, Wheezes Extremities: No: Cold Edema: No Neurological: Yes: Alert. No: Oriented Psychiatric: No: Agitated no jaundice diaphoresis Assessment/Plan EKG: sinus bradycardia with sinus arrhythmia, nonspecific ST abnormality echo 03/2018 mod conc LVH, nl EF, AV severely calcified, RVSP 50-60 mmHg, severe , mean gradient 88 mmHg, PG 140 mmHg, tr to mild MR 87F h/o asthma, dementia p/w hip fracture hip fx s/p repair - post op hip repair, doing well TIFFANY: - creat bumped to 1.5 postop, now improved after ivfs. aortic stenosis - critical aortic stenosis - patient is asymptomatic currently, has dementia difficult to obtain history. - no signs of HF on exam - per patient's nephew Yury: he states she has known diagnosis of , per patient deferring further workup at this point due to significant dementia dementia - manage per primary
--- NOTE | 2018-04-04 16:04 | EKG ---
Test Reason : Blood Pressure : / mmHG Vent. Rate : 075 BPM Atrial Rate : 075 BPM P-R Int : 128 ms QRS Dur : 094 ms QT Int : 382 ms P-R-T Axes : 075 040 093 degrees QTc Int : 426 ms NORMAL SINUS RHYTHM POSSIBLE LEFT ATRIAL ENLARGEMENT LEFT VENTRICULAR HYPERTROPHY WITH REPOLARIZATION ABNORMALITY ABNORMAL ECG Confirmed by Juan A Honeycutt MD ([id number]) on 04/04/2018 4:03:40 PM Referred By: Confirmed By:Juan A Honeycutt MD
[2018-04-04] MEDS: ACETAMINOPHEN 325 MG TABLET (FP) PO PRN (21:12)
[2018-04-04] MEDS: SENNOSIDES 8.6MG TABLET (FP) PO SCH (21:13)
[2018-04-04] MEDS: DOCUSATE SODIUM 100 MG CAPSULE (FP) PO SCH (21:13)
[2018-04-05] MEDS: ALBUTEROL SO4 8 GM HFA INHALER IH PRN (07:49)
[2018-04-05] MEDS: ALBUTEROL SO4 2.5/IPRATROPIUM 0.5 INH SOL 3 ML VIAL.NEB. NEB SCH (08:07)
[2018-04-05 08:14] VITALS: BP 96/62; PULSE 71; TEMP 98.6
[2018-04-05] MEDS: FERROUS SO4 325 MG TABLET (FP) PO SCH (09:42)
[2018-04-05] MEDS: ASCORBIC ACID 500 MG TABLET (FP) PO SCH (09:42)
[2018-04-05] MEDS: CHOLECALCIFEROL (VITAMIN D3) 1,000 UNIT TABLET (FP) PO SCH (09:42)
[2018-04-05 09:48] LABS: BASO % 1.2 % (0-2.0); EOS % 9.4 % (0-4.5); HEMATOCRIT 30.2 % (32.4-45.2); LYMPH % 15.8 % (8-40); MCH 30.2 pg (25.7-33.7); MEAN CELL VOLUME 91.4 fl (80-96); MEAN PLT VOLUME 8.7 fl (7.5-11.1); MONO % 6.2 % (3.8-10.2); NEUT % 67.4 % (42.8-82.8); PLATELET COUNT 187 K/MM3 (134-434); RBC 3.31 M/mm3 (3.60-5.2); RDW 15.3 % (11.6-15.6); WHITE BLOOD COUNT 10.2 K/mm3 (4.0-10.0)
[2018-04-05 10:12] LABS: ANION GAP 11 MMOL/L (8-16); BLOOD UREA NITROGEN 26 mg/dL (7-18); CALCIUM 9.2 mg/dL (8.5-10.1); CHLORIDE 105 mmol/L (98-107); CO2 27 mmol/L (21-32); CREATININE 0.7 mg/dL (0.55-1.3); GLUCOSE,RANDOM 111 mg/dL (74-106); SODIUM 143 mmol/L (136-145)
== END 2018-04-05 10:50 | DRG 481 ==
LOC: JER 09:10 → JERBED 14:52 → J6S 19:35
PROVIDERS: ADMIT Family Medicine; ATTEND Family Medicine
PROC: 0QS604Z Reposition Right Upper Femur with Internal Fixation Device, Open Approach (ICD-10-PCS; principal; 2018-03-29 13:00)
PROC: 30233N1 Transfusion of Nonautologous Red Blood Cells into Peripheral Vein, Percutaneous Approach (ICD-10-PCS; 2018-03-30)
DX: S72.001A Fracture of unspecified part of neck of right femur, initial encounter for closed fracture (principal); N17.9 Acute kidney failure, unspecified; R71.0 Precipitous drop in hematocrit; F03.90 Unspecified dementia, unspecified severity, without behavioral disturbance, psychotic disturbance, mood disturbance, and anxiety; J45.909 Unspecified asthma, uncomplicated; I35.0 Nonrheumatic aortic (valve) stenosis; N13.9 Obstructive and reflux uropathy, unspecified; N63.0 Unspecified lump in unspecified breast; R00.1 Bradycardia, unspecified; W18.39XA Other fall on same level, initial encounter; Y92.89 Other specified places as the place of occurrence of the external cause
CPT/HCPCS: 36415; 36430; 70450-TC; 73523-TC-FY; 76000-TC-FY; 80048; 80053; 81003; 81015; 82550; 83735; 84443; 84484; 85025; 85027; 85610; 85730; 86850; 86900; 86901; 86922; 87086; 93005; 93010; 93306-TC; 94640; 94760; 97116-GP; 97161-GP; 99283-25; J7620; P9038; P9058